=== PATIENT | female | born 1970 | race Caucasian/White ===

== ENCOUNTER 2020-02-26 11:44 | Emergency (ER) | payer MEDICAID ==
[2020-02-26 11:52] VITALS: BP 141/89; PULSE 105; RESP 16; TEMP 98.2
[2020-02-26] MEDS ORDERED: HYDROmorphone 1 MG/ML 1 ML SYRINGE IM STA (12:10)
[2020-02-26] MEDS ORDERED: IBUPROFEN 600 MG TAB PO STA (12:10)
[2020-02-26] MEDS ORDERED: ORPHENADRINE 30 MG/ML 2 ML VIAL IM STA (12:11)
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
--- NOTE | 2020-02-26 13:09 | XR ---
EXAMINATION TYPE: XR lumbosacral spine min 4V DATE OF EXAM: 02/26/2020 COMPARISON: None HISTORY: Low back pain TECHNIQUE: Five-view lumbar spine FINDINGS: There 5 lumbar-type vertebral bodies. Pedicles are intact. No spondylolytic defects are los dent. Disc space narrowing posteriorly is present L4-5. Remaining disc heights are preserved. Vertebr al body heights are preserved. IMPRESSION: 1. Mild posterior L4-5 disc space narrowing. 2. Lumbar spine is otherwise unremarkable.
== END 2020-02-26 13:30 | disposition home or self-care (01) ==
LOC: EC 11:44
DX: S39.012A Strain of muscle, fascia and tendon of lower back, initial encounter (principal); X50.1XXA Overexertion from prolonged static or awkward postures, initial encounter
CPT/HCPCS: 72110; 99283; 96372 ×2; J2360; J1170